=== PATIENT | female | born 1960 ===

== ENCOUNTER 2022-07-24 10:45 | Inpatient (IN) | payer OTHER ==
[~2022-07-24] VITALS: Ht 157.5 cm; Wt 214.5 kg
[~2022-07-24 10:45] MED LIST: ATACAND32 MG; FUSION PLUS CA1 EACH; NORVASC5 MG PO; ZYRTEC10 MG PO
[2022-07-29] MEDS ORDERED: PROTONIX40 MG (10:54)
[2022-07-29] MEDS ORDERED: STIOLTO RESPIMAT4 GM (10:54)
[2022-07-29] MEDS ORDERED: HYDROCHLOROTHIA25 MG (10:54)
[2022-07-29] MEDS ORDERED: POTASSIUM CITR10 ME1 (10:54)
[2022-07-29] MEDS ORDERED: CANDESARTAN-HC1 EAC1 (10:54)
[2022-07-29] MEDS ORDERED: TAMSULOSIN HCL0.4 MG (10:54)
[2022-07-29] MEDS ORDERED: INTESTINEX680 M1 (10:54)
[2022-07-29] MEDS ORDERED: PEPCID40 MG (10:54)
[2022-07-29] MEDS ORDERED: SYNTHROID75 MCG (10:54)
== END 2022-07-31 23:00 | disposition home or self-care (01) | DRG 694 ==
LOC: O/R 07-29 06:22 → SURG 07-29 10:00 → EDBD 07-29 10:45 → SURG 07-29 10:45 → SURH 07-29 15:30
PROVIDERS: ADMIT Urology; ATTEND Urology
PROC: 0TF38ZZ Fragmentation in Right Kidney Pelvis, Via Natural or Artificial Opening Endoscopic (ICD-10-PCS; 2022-07-29)
PROC: BT1DZZZ Fluoroscopy of Right Kidney, Ureter and Bladder (ICD-10-PCS; 2022-07-29)
PROC: 0TC08ZZ Extirpation of Matter from Right Kidney, Via Natural or Artificial Opening Endoscopic (ICD-10-PCS; principal; 2022-07-29 10:00)
DX: N20.0 Calculus of kidney (principal); Z20.822 Contact with and (suspected) exposure to COVID-19